=== PATIENT | male | born 1960 | race Caucasian/White ===

== ENCOUNTER 2016-08-30 14:32 | Emergency (ER) | payer OTHER ==
[~2016-08-30] VITALS: Ht 182.9 cm; Wt 90.7 kg
[~2016-08-30 14:32] MED LIST: AUGMENTIN 875 M1 TAB PO; GEMFIBROZIL600 MG PO; JANUMET 1000 MG1 TAB PO
[2016-08-30 14:53] VITALS: BP 121/76
--- NOTE | 2016-08-30 15:38 | ED SKIN/ALLERGY COMPLAINT ---
History of Present Illness General Chief Complaint: Animal/Insect Bite Stated Complaint: TICK BITE Source: patient, old records Exam Limitations: no limitations Vital Signs & Intake/Output Vital Signs & Intake/Output Vital Signs Date Time Temp Pulse Resp B/P B/P Pulse O2 O2 Flow FiO2 Mean Ox Delivery Rate 08/30 1453 96.6 84 18 121/76 99 Room Air Allergies Coded Allergies: NO KNOWN ALLERGIES (08/30/16) Reconcile Medications No Known Home Medications Triage Note: C/O TICK BITE TO R CHEST AREA X A FEW DAYS. Triage Nurses Notes Reviewed? yes HPI: Patient is a 56-year-old male presents complaining of tick bite to his right anterior chest wall. Patient reports he a foreign body sensation on . Wednesday morning he noticed that a tick was present severe and removed the tick. Today patient noticed mild redness to the area and presented for further evaluation. Pain is 0 out of 10. Patient denies fevers, joint pain, fatigue. Past History Travel History Traveled to [place] past 21 day No Medical History Any Pertinent Medical History? see below for history Endocrine: diabetes Tetanus Vaccine: 10/07/12 Surgical History Surgical History: non-contributory Psychosocial History What is your primary language Romanian Tobacco Use: Never used ETOH Use: denies use Family History Hx Contributory? No Review of Systems Review of Systems Constitutional: Denies: chills, fever, malaise, weakness. Cardiovascular: Denies: chest pain. GI: Denies: abdominal pain. Musculoskeletal: Reports: no symptoms. Denies: joint pain. Skin: Reports: see HPI. Neurological/Psychological: Reports: no symptoms. Hematologic/Endocrine: Reports: no symptoms. Immunologic/Allergic: Reports: no symptoms. Physical Exam Physical Exam General Appearance: well developed/nourished, alert, awake Head: atraumatic, normal appearance Eyes: Bilateral: normal appearance, PERRL, EOMI. Ears, Nose, Throat: hearing grossly normal Neck: normal inspection, supple, full range of motion Respiratory: no respiratory distress Back: normal inspection, normal range of motion Extremities: normal inspection, normal capillary refill, normal range of motion, no edema Skin: 1 cm area of erythema to the right anterior inferior chest wall. No foreign body present. Nontender. No fluctuance. Progress Differential Diagnosis: abscess/cellulitis, lyme disease, tick bite Plan of Care: Current Medications Sig/Flavia Start time Last Medication Dose Stop Time Status Admin Doxycycline Hyclate 200 MG ONCE ONE 08/30 154 UNVr (Vibramycin) 08/30 154 No remaining portion of the tick present on exam. Patient treated with a prophylactic dose of doxycycline given that the tick was present for at least 36 hours. Patient struck to to follow up with his primary care provider if he develops any joint pain, fatigue, fevers, rashes. (NORA GEORGES,VIRGIL) Departure Departure Time of Disposition: 1547 Disposition: HOME OR SELF CARE Condition: Stable Clinical Impression Primary Impression: Tick bite Qualifiers: Encounter type: initial encounter Qualified Code: W57.XXXA - Bitten or stung by nonvenomous insect and other nonvenomous arthropods, initial encounter Referrals: LOS BANDA Additional Instructions: Follow-up with your primary care doctor at the [facility] if you develop any fevers, joint pain, increasing fatigue, or worsening rashes. Departure Forms: Customer Survey General Discharge Information Prescriptions: Current Visit Scripts No Known Home Medications
== END 2016-08-30 15:58 ==
LOC: ERH 14:32
DX: S20.361A Insect bite (nonvenomous) of right front wall of thorax, initial encounter (principal); W57.XXXA Bitten or stung by nonvenomous insect and other nonvenomous arthropods, initial encounter; Y93.9 Activity, unspecified; Y92.9 Unspecified place or not applicable